=== PATIENT | male | born 1940 | race Caucasian/White ===

== ENCOUNTER 2017-10-05 17:19 | Emergency (ER) | payer OTHER, MEDICARE ==
[~2017-10-05] VITALS: Ht 177.8 cm; Wt 144.6 kg
[~2017-10-05 17:19] MED LIST: ALLO100T PO; ATOR20TA PO; CARV-50 PO; CHOL400T32 PO; CLON-529 PO; CYA500T PO; FURO40TA4 PO; HYT1T PO; LOSA1TAB39 PO; METF500T PO; NOR5T PO; POTA20TA19 PO
[2017-10-05 18:25] VITALS: BP 144/70
[2017-10-05] MEDS ORDERED: nitrofuran/nitrofuran macrocrysal 100 MG capsule PO ONE (18:25)
[2017-10-05 19:13] LABS: CLARITY,URINE SLIGHTLY CLOUDY (Clear); COLOR,URINE STRAW (Yellow); GLUCOSE, URINE NEGATIVE (Neg); KETONES,URINE NEGATIVE (Neg); LEUKOCYTE ESTERASE ,URINE LARGE (Neg); NITRITES, URINE POSITIVE (Neg); OCCULT BLOOD,URINE LARGE (Neg); PROTEIN,URINE TRACE mg/dl (Neg); UROBILINOGEN,URINE 0.2 E.U/dL (0.2-1.0)
[2017-10-05] MEDS ORDERED: NITR100C PO (19:17)
[2017-10-05 19:27] LABS: UA COLLECTION TYPE CLN CATCH MIDSTREAM
[2017-10-05 19:38] LABS: BACTERIA,URINE 2+ /HPF (Neg); MUCUS STRANDS NONE SEEN /LPF (Neg); SQUAMOUS EPITHELIAL CELL,UR NONE SEEN /LPF (FEW)
== END 2017-10-05 19:56 | disposition home or self-care (01) ==
LOC: ER 17:20
DX: N39.0 Urinary tract infection, site not specified (principal); I10 Essential (primary) hypertension; F32.9 Major depressive disorder, single episode, unspecified; F41.9 Anxiety disorder, unspecified; G89.29 Other chronic pain; E11.9 Type 2 diabetes mellitus without complications; Z88.2 Allergy status to sulfonamides; Z79.84 Long term (current) use of oral hypoglycemic drugs; Z79.899 Other long term (current) drug therapy
CPT/HCPCS: 81001; 87077; 87088; 87186; 99284

== ENCOUNTER 2019-08-17 18:45 | Emergency (ER) | payer MEDICARE, OTHER ==
[~2019-08-17] VITALS: Ht 177.8 cm; Wt 153.0 kg
[~2019-08-17 18:45] MED LIST changes: -CYA500T PO; +CYAN500T63 PO; +NITR100C PO
[2019-08-17 19:31] LABS: CLARITY,URINE CLOUDY (Clear); COLOR,URINE YELLOW (Yellow); GLUCOSE, URINE NEGATIVE (Neg); KETONES,URINE NEGATIVE (Neg); LEUKOCYTE ESTERASE ,URINE LARGE (Neg); NITRITES, URINE POSITIVE (Neg); OCCULT BLOOD,URINE LARGE (Neg); PH,URINE 6.5 (4.8-8.0); PROTEIN,URINE 30 mg/dl (Neg); UROBILINOGEN,URINE 0.2 E.U/dL (0.2-1.0)
[2019-08-17 19:34] LABS: UA COLLECTION TYPE CLN CATCH MIDSTREAM
[2019-08-17 19:37] LABS: BACTERIA,URINE 3+ /HPF (Neg); SQUAMOUS EPITHELIAL CELL,UR FEW /LPF (FEW); WBC,URINE 20-30 /HPF (0-4)
[2019-08-17 19:38] LABS: WBC CLUMPS,URINE MANY /HPF (NEGATIVE)
[2019-08-17 20:59] LABS: BASOPHILS # (AUTO) 0.1 X10'3 (0-0.2); BASOPHILS % (AUTO) 0.4 % (0-1); EOSINOPHILS # (AUTO) 0.1 X10'3 (0-0.9); EOSINOPHILS % (AUTO) 0.4 % (0-6); HEMATOCRIT 40.9 % (42.0-52.0); HEMOGLOBIN 13.9 g/dl (14.0-17.9); LYMPHOCYTES # (AUTO) 0.4 X10'3 (1.1-4.8); LYMPHOCYTES % (AUTO) 2.7 % (21-51); MEAN CORPUSCULAR HEMOGLOBIN 29.8 PG (27.0-31.0); MEAN CORPUSCULAR HGB CONC 33.9 g/dL (33.0-36.5); MEAN PLATELET VOLUME 8.1 FL (7.4-10.4); MONOCYTES # (AUTO) 0.4 X10'3 (0-0.9); MONOCYTES % (AUTO) 2.6 % (2-12); NEUTROPHILS # (AUTO) 13.1 X10'3 (1.8-7.7); NEUTROPHILS % (AUTO) 93.9 % (42-75); PLATELET COUNT 82 X10'3 (140-440); RED BLOOD COUNT 4.65 X10'6 (4.70-6.10); RED CELL DISTRIBUTION WIDTH 15.6 % (11.5-14.5)
[2019-08-17 21:08] LABS: PARTIAL THROMBOPLASTIN TIME 30 SECONDS (22-32)
[2019-08-17 21:11] LABS: ALANINE AMINOTRANSFERASE 33 U/L (12-78); ALBUMIN 3.7 G/DL (3.4-5.0); ALBUMIN/GLOBULIN RATIO 0.9 (1.1-1.5); ALKALINE PHOSPHATASE 106 IU/L (46-116); ANION GAP 13 (8-16); ASPARTATE AMINO TRANSFERASE 11 U/L (10-37); BILIRUBIN,TOTAL 0.7 MG/DL (0.1-1.0); BLOOD UREA NITROGEN 25 MG/DL (7-18); BUN/CREATININE RATIO 16.8 (5.4-32.0); CHLORIDE 103 MMOL/L (99-107); CREATININE 1.49 MG/DL (0.60-1.10); GLUCOSE 135 MG/DL (70-104); POTASSIUM 4.1 MMOL/L (3.5-5.1); SODIUM 138 MMOL/L (135-145); TOTAL CARBON DIOXIDE 22.1 MMOL/L (24-32); TOTAL PROTEIN 7.8 G/DL (6.4-8.2); eGFR 45 ML/MIN
[2019-08-17] MEDS ORDERED: sulfamethoxazole/trimethoprim DS (800/160mg) tablet PO ONE (21:20)
[2019-08-17] MEDS ORDERED: NITR100C6 PO (21:37)
[2019-08-17] MEDS ORDERED: nitrofuran/nitrofuran macrocrysal 100 MG capsule PO ONE (21:40)
[2019-08-17 22:44] VITALS: BP 128/86
== END 2019-08-17 21:47 | disposition home or self-care (01) ==
LOC: ER 18:47
DX: N39.0 Urinary tract infection, site not specified (principal); I10 Essential (primary) hypertension; E11.9 Type 2 diabetes mellitus without complications; G89.29 Other chronic pain; F41.9 Anxiety disorder, unspecified; F32.9 Major depressive disorder, single episode, unspecified; Z98.890 Other specified postprocedural states; Z88.2 Allergy status to sulfonamides; Z79.899 Other long term (current) drug therapy
CPT/HCPCS: 36415; 71045; 80053; 81001; 83605; 84145; 85025; 85610; 85730; 87040; 87077; 87088; 87186; 99284

== ENCOUNTER 2020-02-11 17:04 | Emergency (ER) | payer OTHER, MEDICARE ==
[~2020-02-11] VITALS: Ht 177.8 cm; Wt 160.0 kg
[~2020-02-11 17:04] MED LIST changes: +NITR100C6 PO
[2020-02-11] MEDS ORDERED: normal saline 1000ML IV soln IVB ONE (18:00)
[2020-02-11] MEDS ORDERED: LIDOcaine 2% 10ml TOPICAL JELLY (Urojet) MM ONE (18:40)
[2020-02-11 18:44] LABS: ALANINE AMINOTRANSFERASE 23 U/L (12-78); ALBUMIN 3.9 G/DL (3.4-5.0); ALBUMIN/GLOBULIN RATIO 0.9 (1.1-1.5); ALKALINE PHOSPHATASE 130 IU/L (46-116); ANION GAP 10 (8-16); ASPARTATE AMINO TRANSFERASE 7 U/L (10-37); BILIRUBIN,TOTAL 0.6 MG/DL (0.1-1.0); BLOOD UREA NITROGEN 26 MG/DL (7-18); CALCIUM 10.5 MG/DL (8.5-10.1); CHLORIDE 105 MMOL/L (99-107); CREATININE 1.53 MG/DL (0.60-1.10); GLUCOSE 130 MG/DL (70-104); POTASSIUM 4.2 MMOL/L (3.5-5.1); SODIUM 139 MMOL/L (135-145); TOTAL CARBON DIOXIDE 24.2 MMOL/L (24-32); TOTAL PROTEIN 8.3 G/DL (6.4-8.2); eGFR 44 ML/MIN
[2020-02-11 18:50] LABS: BASOPHILS # (AUTO) 0.1 X10'3 (0-0.2); BASOPHILS % (AUTO) 0.5 % (0-1); EOSINOPHILS # (AUTO) 0.2 X10'3 (0-0.9); EOSINOPHILS % (AUTO) 1.3 % (0-6); HEMATOCRIT 40.4 % (42.0-52.0); HEMOGLOBIN 13.3 g/dl (14.0-17.9); LYMPHOCYTES # (AUTO) 1.3 X10'3 (1.1-4.8); LYMPHOCYTES % (AUTO) 9.1 % (21-51); MEAN CORPUSCULAR HEMOGLOBIN 28.7 PG (27.0-31.0); MEAN CORPUSCULAR HGB CONC 32.9 g/dL (33.0-36.5); MEAN CORPUSCULAR VOLUME 87.4 FL (78-98); MONOCYTES # (AUTO) 0.9 X10'3 (0-0.9); MONOCYTES % (AUTO) 6.5 % (2-12); NEUTROPHILS # (AUTO) 11.9 X10'3 (1.8-7.7); NEUTROPHILS % (AUTO) 82.6 % (42-75); PLATELET COUNT 54 X10'3 (140-440); RED BLOOD COUNT 4.62 X10'6 (4.70-6.10); WHITE BLOOD COUNT 14.3 X10'3 (4.5-11.0)
[2020-02-11 20:18] LABS: CLARITY,URINE CLOUDY (Clear); COLOR,URINE YELLOW (Yellow); GLUCOSE, URINE NEGATIVE (Neg); KETONES,URINE NEGATIVE (Neg); LEUKOCYTE ESTERASE ,URINE MODERATE (Neg); NITRITES, URINE NEGATIVE (Neg); OCCULT BLOOD,URINE LARGE (Neg); PROTEIN,URINE 100 mg/dl (Neg); UROBILINOGEN,URINE 0.2 E.U/dL (0.2-1.0)
[2020-02-11 20:32] LABS: UA COLLECTION TYPE URINAL
[2020-02-11 20:34] LABS: BACTERIA,URINE 4+ /HPF (Neg); RBC,URINE 50-100 /HPF (0-2); SQUAMOUS EPITHELIAL CELL,UR FEW /LPF (FEW)
[2020-02-11] MEDS ORDERED: DOXYCYCLINE 100MG CAPSULE PO STA (20:43)
[2020-02-11] MEDS ORDERED: CefTRIAXone 1000mg IM Kit (w/lidocaine diluent) IM ONE (20:45)
[2020-02-11] MEDS ORDERED: CEPH250T PO (20:49)
[2020-02-11] MEDS ORDERED: DOXY100C76 PO (20:49)
--- NOTE | 2020-02-11 21:07 | NUR ---
UROLOGIST AT BEDSIDE ATTEMPTING A BATES CATHETER DUE TO PATIENTS ANATOMY SPEACIALTIST NEEDED TO BE CALLED IN,. PATIENT IN BED RR EVEN UN LABORED NO OBSERVABLE S/S OF ACUTE STRESS AT THIS TIME CONTINUE TO MONITOR
[2020-02-11] MEDS ORDERED: FLO0.4C PO (21:20)
[2020-02-11 21:44] VITALS: BP 140/75
== END 2020-02-11 21:47 | disposition home or self-care (01) ==
LOC: ER 17:04
DX: N39.0 Urinary tract infection, site not specified (principal); R33.9 Retention of urine, unspecified; N48.1 Balanitis; I10 Essential (primary) hypertension; E11.9 Type 2 diabetes mellitus without complications; G89.29 Other chronic pain; F41.9 Anxiety disorder, unspecified; F32.9 Major depressive disorder, single episode, unspecified; Z98.890 Other specified postprocedural states; Z88.2 Allergy status to sulfonamides; Z91.018 Allergy to other foods; Z91.013 Allergy to seafood; Z79.899 Other long term (current) drug therapy
CPT/HCPCS: 36415; 51702; 74176; 80053; 81001; 85025; 87088; 96372; 99285; J0696; J7030; 87186

== ENCOUNTER 2020-02-13 21:24 | Emergency (ER) | payer OTHER, MEDICARE ==
[~2020-02-13] VITALS: Ht 177.8 cm; Wt 140.9 kg
[~2020-02-13 21:24] MED LIST changes: +CEPH250T PO; +DOXY100C76 PO; +FLO0.4C PO
[2020-02-13 21:37] VITALS: BP 155/73
== END 2020-02-13 22:35 | disposition home or self-care (01) ==
LOC: ER 21:25
DX: T83.9XXA Unspecified complication of genitourinary prosthetic device, implant and graft, initial encounter (principal); I10 Essential (primary) hypertension; E11.9 Type 2 diabetes mellitus without complications; G89.29 Other chronic pain; F41.9 Anxiety disorder, unspecified; F32.9 Major depressive disorder, single episode, unspecified; Z88.2 Allergy status to sulfonamides; Z79.899 Other long term (current) drug therapy
CPT/HCPCS: 99284

== ENCOUNTER 2023-02-04 15:53 | Emergency (ER) | payer OTHER, MEDICARE ==
[~2023-02-04 15:53] MED LIST changes: -CEPH250T PO; -CYAN500T63 PO; +CYAN500T71 PO; -DOXY100C76 PO; -FLO0.4C PO; +POTA-207 PO; -POTA20TA19 PO
== END 2023-02-04 19:35 | disposition left against medical advice (07) ==
LOC: ER 15:54
DX: B99.9 Unspecified infectious disease (principal); Z53.21 Procedure and treatment not carried out due to patient leaving prior to being seen by health care provider

== ENCOUNTER 2024-04-13 13:01 | Emergency (ER) | payer OTHER, MEDICARE ==
[~2024-04-13] VITALS: Ht 177.8 cm; Wt 125.0 kg
[~2024-04-13 13:01] MED LIST changes: +ATOR10TA87 PO; -ATOR20TA PO; -CARV-50 PO; +CARV25TA3 PO; +CHOL100024 PO; -CHOL400T32 PO; -CLON-529 PO; +CLON0.2T PO; +DOCU100C40 PO; +FINA5TAB11 PO; +FLO0.4C PO; +FOLI1TAB27 PO; -FURO40TA4 PO; +LOSA100T58 PO; -LOSA1TAB39 PO; +MONT-40 PO; -NITR100C PO; -NITR100C6 PO; -POTA-207 PO
[2024-04-13 13:37] VITALS: BP 165/83; PULSE 53; RESP 18; TEMP 97.3; O2SAT 97
== END 2024-04-13 14:35 | disposition home or self-care (01) ==
LOC: ER 13:02
DX: T78.1XXA Other adverse food reactions, not elsewhere classified, initial encounter (principal); I10 Essential (primary) hypertension; E11.9 Type 2 diabetes mellitus without complications; G89.29 Other chronic pain; F32.A Depression, unspecified; Z88.2 Allergy status to sulfonamides; Z91.013 Allergy to seafood; Z91.018 Allergy to other foods; Z79.899 Other long term (current) drug therapy; Z79.84 Long term (current) use of oral hypoglycemic drugs; X58.XXXA Exposure to other specified factors, initial encounter
CPT/HCPCS: 99283

== ENCOUNTER 2024-05-25 15:11 | Emergency (ER) | payer OTHER, MEDICARE ==
[~2024-05-25] VITALS: Ht 177.8 cm; Wt 100.0 kg
--- NOTE | 2024-05-25 15:48 | NUR ---
DAUGHTER NICHOLAS CALLED TO INFORM US THAT PT "DOES NOT HAVE CAPACITY" AND THAT IF WE HAVE ANY QUESTIONS THAT WE ARE WELCOME TO CALL HER TO GET MORE INFORMATION ON THE PT.
--- NOTE | 2024-05-25 16:51 | NUR ---
pharmacy called for iv abx delivery
[2024-05-25] MEDS: piperacillin/tazo 4.5gm/100ml 100 ML IV ONE (17:09)
[2024-05-25 17:32] LABS: ALBUMIN 2.8 G/DL (3.4-5.0); ANION GAP 8 (8-16); BLOOD UREA NITROGEN 23 MG/DL (7-18); BUN/CREATININE RATIO 17.7 (10.0-20.0); CALCIUM 9.7 MG/DL (8.5-10.1); CHLORIDE 109 MMOL/L (99-107); GLUCOSE 95 MG/DL (70-104); POTASSIUM 4.2 MMOL/L (3.5-5.1); SODIUM 145 MMOL/L (135-145); TOTAL CARBON DIOXIDE 28.5 MMOL/L (24-32); eCRCL 42 ML/MIN; eGFR 52 ML/MIN
[2024-05-25 17:33] LABS: BASOPHILS # (AUTO) 0.1 X10'3 (0-0.2); BASOPHILS % (AUTO) 0.8 % (0-1); EOSINOPHILS # (AUTO) 0.5 X10'3 (0-0.9); EOSINOPHILS % (AUTO) 5.4 % (0-6); HEMATOCRIT 32.1 % (42.0-52.0); HEMOGLOBIN 10.1 g/dl (14.0-17.9); LYMPHOCYTES % (AUTO) 11.2 % (21-51); MEAN CORPUSCULAR HEMOGLOBIN 26.5 PG (27.0-31.0); MEAN CORPUSCULAR HGB CONC 31.4 g/dL (33.0-36.5); MEAN CORPUSCULAR VOLUME 84.2 FL (78-98); MEAN PLATELET VOLUME 8.4 FL (7.4-10.4); MONOCYTES # (AUTO) 0.7 X10'3 (0-0.9); MONOCYTES % (AUTO) 8.2 % (2-12); NEUTROPHILS # (AUTO) 6.3 X10'3 (1.8-7.7); NEUTROPHILS % (AUTO) 74.4 % (42-75); RED BLOOD COUNT 3.82 X10'6 (4.70-6.10); RED CELL DISTRIBUTION WIDTH 16.1 % (11.5-14.5); WHITE BLOOD COUNT 8.5 X10'3 (4.5-11.0)
[2024-05-25 17:57] LABS: PLATELET COUNT 44 X10'3 (140-440)
[2024-05-25 18:04] LABS: TOTAL CELLS COUNTED 100
[2024-05-25 18:05] LABS: ANISOCYTOSIS 1+; PLATELET ESTIMATE DECREASED
[2024-05-25] MEDS: magnesium sulf-water 2g/50mL 50 ML IV ONE (18:05)
[2024-05-25 18:06] LABS: STOMATOCYTES FEW
[2024-05-25 20:59] VITALS: BP 151/89; PULSE 81; RESP 12; TEMP 98.2; O2SAT 96
== END 2024-05-25 21:02 | disposition hospice, inpatient (51) ==
LOC: ER 15:11
DX: S80.922A Unspecified superficial injury of left lower leg, initial encounter (principal); I10 Essential (primary) hypertension; E11.9 Type 2 diabetes mellitus without complications; G89.29 Other chronic pain; F41.9 Anxiety disorder, unspecified; F32.A Depression, unspecified; Z88.2 Allergy status to sulfonamides; Z79.899 Other long term (current) drug therapy; Z79.84 Long term (current) use of oral hypoglycemic drugs; Z98.890 Other specified postprocedural states; X58.XXXA Exposure to other specified factors, initial encounter; Y93.89 Activity, other specified; Y92.89 Other specified places as the place of occurrence of the external cause; Y99.8 Other external cause status
CPT/HCPCS: 36415; 80048; 83735; 84145; 85007; 85025; 87040; 96365; 96366; 96368; 99285; J2543

== ENCOUNTER 2024-10-12 02:58 | Inpatient (IN) | payer OTHER, MEDICARE ==
[~2024-10-12] VITALS: Ht 188 cm; Wt 110.0 kg
[2024-10-12] VITALS (11 sets, daily range): BP systolic 79–108; BP diastolic 28–42; PULSE 62–103; RESP 14–21; TEMP 97.4; O2SAT 90–99
[2024-10-12 03:30] LABS: BASOPHILS # (AUTO) 0.1 X10'3 (0-0.2); BASOPHILS % (AUTO) 0.8 % (0-1); EOSINOPHILS # (AUTO) 0.4 X10'3 (0-0.9); EOSINOPHILS % (AUTO) 5.7 % (0-6); HEMATOCRIT 31.3 % (42.0-52.0); HEMOGLOBIN 9.6 g/dl (14.0-17.9); LYMPHOCYTES # (AUTO) 0.7 X10'3 (1.1-4.8); LYMPHOCYTES % (AUTO) 9.6 % (21-51); MEAN CORPUSCULAR HEMOGLOBIN 24.3 PG (27.0-31.0); MEAN CORPUSCULAR HGB CONC 30.7 g/dL (33.0-36.5); MEAN PLATELET VOLUME 8.4 FL (7.4-10.4); MONOCYTES # (AUTO) 0.7 X10'3 (0-0.9); MONOCYTES % (AUTO) 9.7 % (2-12); NEUTROPHILS # (AUTO) 5.4 X10'3 (1.8-7.7); NEUTROPHILS % (AUTO) 74.2 % (42-75); RED BLOOD COUNT 3.97 X10'6 (4.70-6.10); RED CELL DISTRIBUTION WIDTH 18.3 % (11.5-14.5); WHITE BLOOD COUNT 7.3 X10'3 (4.5-11.0)
[2024-10-12 03:51] LABS: ALBUMIN 2.8 G/DL (3.4-5.0); ANION GAP 4 (8-16); BLOOD UREA NITROGEN 25 MG/DL (7-18); BUN/CREATININE RATIO 17.9 (10.0-20.0); CHLORIDE 106 MMOL/L (99-107); GLUCOSE 94 MG/DL (70-104); POTASSIUM 4.4 MMOL/L (3.5-5.1); PRO BRAIN NATRIURETIC PEPTIDE 679 PG/ML (0-450); SODIUM 140 MMOL/L (135-145); eCRCL 44 ML/MIN; eGFR 48 ML/MIN
[2024-10-12 03:53] LABS: CALCIUM 9.4 MG/DL (8.5-10.1)
[2024-10-12 03:54] LABS: PLATELET COUNT 46 X10'3 (140-440)
[2024-10-12] MEDS ORDERED: CARV-50 PO (04:40)
[2024-10-12] MEDS ORDERED: LORA10TA7 PO (04:41)
[2024-10-12] MEDS ORDERED: SENN-360 PO (04:42)
[2024-10-12] MEDS ORDERED: VALS80TA32 PO (04:50)
[2024-10-12] MEDS ORDERED: ASPI81TA52 PO (04:51)
[2024-10-12] MEDS ORDERED: MAGN200T5 PO (04:51)
[2024-10-12] MEDS ORDERED: KETO-96 RIGHTEYE (04:53)
[2024-10-12] MEDS ORDERED: KETO-96 LEFTEYE (04:53)
[2024-10-12] MEDS ORDERED: LACT-294 PO (04:53)
[2024-10-12] MEDS ORDERED: NUTR1PAC9 PO (04:54)
[2024-10-12 05:08] LABS: BILIRUBIN,URINE NEGATIVE (Neg); CLARITY,URINE SLIGHTLY CLOUDY (Clear); COLOR,URINE YELLOW (Yellow); GLUCOSE, URINE NEGATIVE (Neg); KETONES,URINE NEGATIVE (Neg); LEUKOCYTE ESTERASE ,URINE MODERATE (Neg); NITRITES, URINE NEGATIVE (Neg); OCCULT BLOOD,URINE TRACE-INTACT (Neg); PROTEIN,URINE 30 mg/dl (Neg); UROBILINOGEN,URINE 0.2 E.U/dL (0.2-1.0)
[2024-10-12 05:13] LABS: BACTERIA,URINE 4+ /HPF (Neg); RBC,URINE 0-2 /HPF (0-2); SQUAMOUS EPITHELIAL CELL,UR FEW /LPF (FEW); UA COLLECTION TYPE CLN CATCH MIDSTREAM
[2024-10-12] MEDS ORDERED: mag hydrox/Alum hydrox/simeth 30ml oral suspension PO PRN (05:15)
[2024-10-12] MEDS ORDERED: magnesium sulf-water 2g/50mL 50 ML IV PRN (05:15)
[2024-10-12] MEDS ORDERED: HYDROmorphone inj. 0.5 MG/0.5 ML DISP.SYRIN IV PRN (05:15)
[2024-10-12] MEDS ORDERED: potassium Cl 20 mEq SR tablet PO PRN ×2 (05:15)
[2024-10-12] MEDS ORDERED: potassium Cl 40MEQ/1/2NS 520ml 520 ML IV PRN (05:15)
[2024-10-12] MEDS ORDERED: magnesium hydroxide 30ml (MOM) UD suspension PO PRN (05:15)
[2024-10-12] MEDS ORDERED: PERFLUTREN PROTEIN-A MICROSPHR (Optison) 0.22 MG/ML 3ML VIAL IV PRN (05:15)
[2024-10-12] MEDS ORDERED: magnesium Cl slow-release 64mg tablet PO PRN (05:15)
[2024-10-12] MEDS ORDERED: acetaminophen 325mg tablet PO PRN ×2 (05:15→14:20)
[2024-10-12] MEDS ORDERED: magnesium sulf-water 4G/100mL 100 ML IV PRN (05:15)
[2024-10-12] MEDS: azithromycin/NS 500mg/250ml 250 ML IV SCH (05:20)
[2024-10-12] MEDS ORDERED: albuterol 2.5 MG/3 ML nebule NEB PRN (05:30)
[2024-10-12] MEDS: furosemide 10 MG/1 ML 10ml inj IV SCH ×2 (05:55→20:57)
[2024-10-12] MEDS: CefTRIAXone/D5W-Rocephin 1gm 50 ML IV SCH (05:58)
[2024-10-12 06:47] LABS: OSMOLALITY 293 MOSM/K (280-300)
[2024-10-12] MEDS: ipratropium/albuterol 3ml nebule NEB SCH (07:24)
[2024-10-12] MEDS: docusate sod 100mg capsule PO SCH (08:00)
[2024-10-12] MEDS: K and/or MAG REPLACEMENT MC SCH (08:00)
[2024-10-12] MEDS: ondansetron/PF 4mg/2ml inj IV PRN (11:06)
[2024-10-12] MEDS: acetaminophen 325mg tablet PO PRN (13:39)
[2024-10-12] MEDS: normal saline 250ml IV soln 250 ML IV ONE (14:45)
[2024-10-12] MEDS: nystatin 15 GM powder TP SCH (20:58)
[2024-10-13] VITALS (16 sets, daily range): BP systolic 93–118; BP diastolic 36–61; PULSE 71–97; RESP 14–19; TEMP 97.1–97.6; O2SAT 90–100
[2024-10-13] MEDS: normal saline 1000ml 1,000 ML IV SCH (01:41)
[2024-10-13 07:28] LABS: EOSINOPHILS # (AUTO) 0.2 X10'3 (0-0.9); HEMOGLOBIN 9.8 g/dl (14.0-17.9); LYMPHOCYTES # (AUTO) 0.4 X10'3 (1.1-4.8); LYMPHOCYTES % (AUTO) 3.9 % (21-51); MONOCYTES # (AUTO) 0.4 X10'3 (0-0.9); NEUTROPHILS % (AUTO) 89.9 % (42-75)
[2024-10-13 07:31] LABS: BASOPHILS % (AUTO) 0.3 % (0-1); EOSINOPHILS % (AUTO) 1.6 % (0-6); HEMATOCRIT 32.1 % (42.0-52.0); MEAN CORPUSCULAR HGB CONC 30.4 g/dL (33.0-36.5); MEAN CORPUSCULAR VOLUME 79.1 FL (78-98); MEAN PLATELET VOLUME 8.9 FL (7.4-10.4); MONOCYTES % (AUTO) 4.3 % (2-12); RED BLOOD COUNT 4.06 X10'6 (4.70-6.10); RED CELL DISTRIBUTION WIDTH 17.8 % (11.5-14.5)
[2024-10-13 07:34] LABS: PLATELET COUNT 20 X10'3 (140-440)
[2024-10-13 07:53] LABS: ALANINE AMINOTRANSFERASE 10 U/L (12-78); ALBUMIN 2.4 G/DL (3.4-5.0); ALBUMIN/GLOBULIN RATIO 0.6 (1.1-1.5); ALKALINE PHOSPHATASE 76 IU/L (46-116); ANION GAP 5 (8-16); ASPARTATE AMINO TRANSFERASE 0 U/L (10-37); BILIRUBIN,TOTAL 0.2 MG/DL (0.1-1.0); BLOOD UREA NITROGEN 30 MG/DL (7-18); BUN/CREATININE RATIO 19.4 (10.0-20.0); CALCIUM 9.3 MG/DL (8.5-10.1); CHLORIDE 104 MMOL/L (99-107); CREATININE 1.55 MG/DL (0.60-1.10); GLUCOSE 90 MG/DL (70-104); MAGNESIUM 1.4 MG/DL (1.5-2.4); POTASSIUM 4.6 MMOL/L (3.5-5.1); SODIUM 141 MMOL/L (135-145); TOTAL CARBON DIOXIDE 31.6 MMOL/L (24-32); TOTAL PROTEIN 6.1 G/DL (6.4-8.2); eCRCL 40 ML/MIN; eGFR 43 ML/MIN
[2024-10-13] MEDS ORDERED: non-formulary drug (Ketotifen Fumarate 1 DROP) LEFTEYE SCH (08:00)
[2024-10-13] MEDS: losartan 50mg tablet PO SCH (08:00)
[2024-10-13] MEDS ORDERED: non-formulary drug (Ketotifen Fumarate 1 DROP) RIGHTEYE SCH (08:00)
[2024-10-13] MEDS: aspirin 81mg, enteric-coated 1 TAB TABLET.DR PO SCH (09:03)
[2024-10-13] MEDS: tamsulosin 0.4mg capsule PO SCH (09:03)
[2024-10-13] MEDS: carvedilol 6.25mg tablet PO SCH (09:04)
[2024-10-13] MEDS: allopurinol 100mg tablet PO SCH (09:04)
[2024-10-13] MEDS: atorvastatin 10mg tablet PO SCH (09:05)
[2024-10-13] MEDS: cholecalciferol (vitamin D3) 1,000 unit (25mcg) tablet PO SCH (09:05)
[2024-10-13] MEDS: lactobacillus rhamnosus 10,000 MMU CELLS/CAPSULE PO SCH (10:21)
[2024-10-13] MEDS: finasteride 5mg tablet PO SCH (10:21)
[2024-10-13] MEDS: methylPREDNISolone sod succ 125mg/2ml vial IV SCH (15:29)
[2024-10-13] MEDS: magnesium oxide 400mg tablet PO SCH (21:48)
[2024-10-13] MEDS: guaiFENesin ER 600mg tablet PO SCH (21:48)
[2024-10-14] VITALS (16 sets, daily range): BP systolic 96–113; BP diastolic 48–56; PULSE 54–98; RESP 12–20; TEMP 97.6–98.4; O2SAT 90–98
[2024-10-14 06:35] LABS: BASOPHILS % (AUTO) 0.1 % (0-1); EOSINOPHILS % (AUTO) 0.1 % (0-6); HEMATOCRIT 32.9 % (42.0-52.0); HEMOGLOBIN 10.1 g/dl (14.0-17.9); LYMPHOCYTES # (AUTO) 0.3 X10'3 (1.1-4.8); LYMPHOCYTES % (AUTO) 3.9 % (21-51); MEAN CORPUSCULAR HEMOGLOBIN 24.7 PG (27.0-31.0); MEAN CORPUSCULAR HGB CONC 30.6 g/dL (33.0-36.5); MEAN CORPUSCULAR VOLUME 80.7 FL (78-98); MEAN PLATELET VOLUME 9.6 FL (7.4-10.4); MONOCYTES # (AUTO) 0.1 X10'3 (0-0.9); MONOCYTES % (AUTO) 0.8 % (2-12); NEUTROPHILS # (AUTO) 7.6 X10'3 (1.8-7.7); NEUTROPHILS % (AUTO) 95.1 % (42-75); RED BLOOD COUNT 4.08 X10'6 (4.70-6.10)
[2024-10-14 06:57] LABS: ALANINE AMINOTRANSFERASE 14 U/L (12-78); ALBUMIN 2.7 G/DL (3.4-5.0); ALBUMIN/GLOBULIN RATIO 0.7 (1.1-1.5); ALKALINE PHOSPHATASE 76 IU/L (46-116); ANION GAP 5 (8-16); ASPARTATE AMINO TRANSFERASE 1 U/L (10-37); BILIRUBIN,TOTAL 0.2 MG/DL (0.1-1.0); BLOOD UREA NITROGEN 41 MG/DL (7-18); BUN/CREATININE RATIO 29.5 (10.0-20.0); CALCIUM 9.4 MG/DL (8.5-10.1); CHLORIDE 105 MMOL/L (99-107); CREATININE 1.39 MG/DL (0.60-1.10); GLUCOSE 148 MG/DL (70-104); MAGNESIUM 1.8 MG/DL (1.5-2.4); SODIUM 143 MMOL/L (135-145); TOTAL PROTEIN 6.8 G/DL (6.4-8.2); eCRCL 44 ML/MIN; eGFR 48 ML/MIN
[2024-10-14 07:12] LABS: PLATELET COUNT 12 X10'3 (140-440)
[2024-10-14] MEDS: metoprolol tartrate 1mg/ml inj IV SCH (09:15)
[2024-10-14] MEDS: furosemide 20MG tablet PO SCH (09:52)
[2024-10-14] MEDS: carVEDilol 3.125mg tablet PO SCH (20:56)
[2024-10-15] VITALS (21 sets, daily range): BP systolic 136–160; BP diastolic 67–102; PULSE 64–114; RESP 16–22; TEMP 97.2–98.4; O2SAT 88–95
[2024-10-15] MEDS: losartan 50mg tablet PO ONE (04:58)
[2024-10-15 06:41] LABS: BASOPHILS % (AUTO) 0.1 % (0-1); EOSINOPHILS % (AUTO) 0 % (0-6); HEMATOCRIT 30.4 % (42.0-52.0); HEMOGLOBIN 9.3 g/dl (14.0-17.9); LYMPHOCYTES # (AUTO) 0.4 X10'3 (1.1-4.8); LYMPHOCYTES % (AUTO) 4.1 % (21-51); MEAN CORPUSCULAR HEMOGLOBIN 24.3 PG (27.0-31.0); MEAN CORPUSCULAR HGB CONC 30.7 g/dL (33.0-36.5); MEAN PLATELET VOLUME 8.9 FL (7.4-10.4); MONOCYTES # (AUTO) 0.2 X10'3 (0-0.9); MONOCYTES % (AUTO) 1.9 % (2-12); NEUTROPHILS # (AUTO) 9.5 X10'3 (1.8-7.7); NEUTROPHILS % (AUTO) 93.9 % (42-75); PLATELET COUNT 60 X10'3 (140-440); RED BLOOD COUNT 3.84 X10'6 (4.70-6.10); WHITE BLOOD COUNT 10.2 X10'3 (4.5-11.0)
[2024-10-15 07:16] LABS: ALANINE AMINOTRANSFERASE 14 U/L (12-78); ALBUMIN 2.6 G/DL (3.4-5.0); ALBUMIN/GLOBULIN RATIO 0.6 (1.1-1.5); ALKALINE PHOSPHATASE 73 IU/L (46-116); ANION GAP 8 (8-16); ASPARTATE AMINO TRANSFERASE 7 U/L (10-37); BILIRUBIN,TOTAL 0.3 MG/DL (0.1-1.0); BLOOD UREA NITROGEN 50 MG/DL (7-18); BUN/CREATININE RATIO 38.5 (10.0-20.0); CALCIUM 9.5 MG/DL (8.5-10.1); CHLORIDE 103 MMOL/L (99-107); GLUCOSE 135 MG/DL (70-104); MAGNESIUM 1.5 MG/DL (1.5-2.4); POTASSIUM 5.1 MMOL/L (3.5-5.1); SODIUM 141 MMOL/L (135-145); TOTAL PROTEIN 6.8 G/DL (6.4-8.2); eCRCL 47 ML/MIN; eGFR 52 ML/MIN
[2024-10-15] MEDS: HYDROmorphone/PF 0.2 MG/ML SYRINGE IV PRN (07:47)
[2024-10-15] MEDS: levoFLOXACIN 250mg tablet PO ONE (17:45)
[2024-10-15] MEDS: apixaban 5mg tablet PO SCH (20:00)
[2024-10-16] MEDS: LORazepam 2 mg/ml vial IV ONE ×2 (03:08→07:00)
[2024-10-16 05:38] VITALS: BP 133/67; PULSE 91
[2024-10-16 06:00] VITALS: BP 129/94; PULSE 90; RESP 18; O2SAT 90
[2024-10-16 07:40] VITALS: BP_SYST 129
[2024-10-16 08:00] VITALS: RESP 18; O2SAT 90
[2024-10-16 08:20] VITALS: PULSE 92; RESP 18; O2SAT 94
[2024-10-16] MEDS ORDERED: APIX5TAB3 PO (08:59)
[2024-10-16] MEDS ORDERED: LEVO250T74 PO (10:08)
[2024-10-16] MEDS ORDERED: GUAI600T45 PO (10:25)
[2024-10-16] MEDS ORDERED: SULF1TAB49 PO (10:25)
[2024-10-16] MEDS ORDERED: levoFLOXACIN 250mg tablet PO SCH (11:00)
== END 2024-10-16 11:01 | disposition home health service (06) | DRG 177 ==
LOC: ER 02:59 → ED HOLD 04:56 → PCU 3S 17:47
PROVIDERS: ADMIT Internal Medicine Critical Care Medicine; ATTEND Internal Medicine
PROC: 30233R1 Transfusion of Nonautologous Platelets into Peripheral Vein, Percutaneous Approach (ICD-10-PCS; principal; 2024-10-14)
PROC: 0W993ZZ Drainage of Right Pleural Cavity, Percutaneous Approach (ICD-10-PCS; 2024-10-15)
DX: J15.69 Pneumonia due to other Gram-negative bacteria (principal); I50.33 Acute on chronic diastolic (congestive) heart failure; N17.0 Acute kidney failure with tubular necrosis; L03.116 Cellulitis of left lower limb; N39.0 Urinary tract infection, site not specified; J91.8 Pleural effusion in other conditions classified elsewhere; J15.9 Unspecified bacterial pneumonia; Z20.822 Contact with and (suspected) exposure to COVID-19; F32.A Depression, unspecified; F41.9 Anxiety disorder, unspecified; N40.0 Benign prostatic hyperplasia without lower urinary tract symptoms; I48.0 Paroxysmal atrial fibrillation; I11.0 Hypertensive heart disease with heart failure; E11.9 Type 2 diabetes mellitus without complications; Z88.2 Allergy status to sulfonamides; Z88.8 Allergy status to other drugs, medicaments and biological substances; Z91.013 Allergy to seafood; Z79.899 Other long term (current) drug therapy
CPT/HCPCS: 32555; 36415; 71045; 71250; 80048; 80053; 81001; 83605; 83735; 83880; 83930; 84145; 84484; 85025; 86885; 86900; 86901; 87040; 87070; 87077; 87081; 87088; 87186; 87502; 87503; 87811; 93005; 93306; 94640; 94760; 97110; 97161; 97530; 99285; A4358; A4615; A6213; A6223; A6250; A6258; A6260; A6446; A6449; A6590; G0378; J0456; J0696; J1171; J1940; J2060; J2405; J2919; J3490; J7030; J7050; P9035